=== PATIENT | male | born 1985 | race Caucasian/White ===

== ENCOUNTER 2017-12-30 15:00 | Emergency (ER) | payer OTHER ==
[2017-12-30] MEDS: Sodium Chloride 0.9% 1,000 ML IV ONE (17:20)
--- NOTE | 2017-12-30 17:20 | EDM.PDOC ---
ED HPI GENERAL MEDICAL PROBLEM - General Chief Complaint: Gastrointestinal Problem Stated Complaint: INHALED OLD COLD MED SPRAY/VOMITING Time Seen by Provider: 12/30/17 16:40 Source of Information: Reports: Patient - History of Present Illness INITIAL COMMENTS - FREE TEXT/NARRATIVE: Patient is here today for evaluation of sore throat, nausea and vomiting that started this morning. Patient states that he awoke with sore throat, he did use Chloraseptic [place] but feels that this needed monitor. Patient has been nauseated all day, has had approximately 20 episodes of vomiting. He states he has tried to drink fluids but has not kept any of this down. Patient has no history of GI illness. He has no known ill contacts. No different food or travel. Patient states that he does have some mild abdominal pain, he states that he feels this is more muscular from the force of vomiting. No other pain. Denies fever or chills. Middle Abdomen Pain Score (Numeric/FACES): 6 - Related Data Allergies Allergy/AdvReac Type Severity Reaction Status Date / Time No Known Allergies Allergy Verified 10/19/17 20:29 Home Meds: Home Meds Lisinopril 20 mg PO BEDTIME 12/30/17 [History] Ondansetron HCl [Zofran] 4 mg PO Q8HR PRN #10 tablet 12/30/17 [Rx] Past Medical History Cardiovascular History: Reports: High Cholesterol, Hypertension Psychiatric History: Reports: Anxiety Social & Family History - Tobacco Use Smoking Status *Q: Current Every Day Smoker Years of Tobacco use: 10 Packs/Tins Daily: 0.7 - Caffeine Use Caffeine Use: Reports: Tea ED ROS GENERAL - Review of Systems Review Of Systems: See Below Constitutional: Reports: Decreased Appetite. Denies: Fever, Chills, Malaise, Weakness, Fatigue HEENT: Reports: Throat Pain. Denies: Rhinitis, Sinus Problem, Throat Swelling Respiratory: Reports: No Symptoms Cardiovascular: Reports: No Symptoms GI/Abdominal: Reports: Abdominal Pain (mild, diffuse. Patient states muscle pain secondary to vomiting. ), Decreased Appetite, Nausea, Vomiting. Denies: Constipation, Diarrhea : Reports: No Symptoms Musculoskeletal: Reports: No Symptoms Skin: Reports: No Symptoms Neurological: Reports: No Symptoms Psychiatric: Reports: No Symptoms ED EXAM, GI/ABD - Physical Exam Exam: See Below Exam Limited By: No Limitations General Appearance: Alert, WD/WN, No Apparent Distress Ears: Normal External Exam, Normal Canal Nose: Normal Inspection, Normal Mucosa. No: Nasal Drainage Throat/Mouth: Normal Inspection, Normal Lips, Normal Oropharynx Head: Atraumatic, Normocephalic Neck: Normal Inspection, Supple, Non-Tender Respiratory/Chest: No Respiratory Distress, Lungs Clear, Normal Breath Sounds Cardiovascular: Normal Peripheral Pulses, Regular Rate, Rhythm, No Murmur GI/Abdominal Exam: Normal Bowel Sounds, Soft, Tender (mild mid-abdominal tenderness). No: Guarding, Rigid Extremities: Normal Inspection, Normal Range of Motion Neurological: Alert, Oriented Psychiatric: Normal Affect, Normal Mood Skin Exam: Warm, Dry, Intact Course - Vital Signs Last Recorded V/S: Last Vital Signs Temp 96.8 F 12/30/17 15:26 Pulse 103 H 12/30/17 18:50 Resp 18 12/30/17 18:50 BP 151/94 H 12/30/17 18:50 Pulse Ox 94 L 12/30/17 15:26 - Orders/Labs/Meds Orders: Active Orders 24 hr Category Date Time Status EKG 12 Lead [EKG Documentation Completion] [RC] STAT Care 12/30/17 16:52 Active CULTURE STREP A CONFIRMATION [RM] Stat Lab 12/30/17 17:10 Results Rapid Strep w/culture conf [STREP SCRN A RAPID W CULT Lab 12/30/17 17:10 Results CONF] [] Stat Labs: Laboratory Tests 12/30/17 12/30/17 12/30/17 Range/Units 15:29 15:29 15:29 WBC 9.63 H (4.23-9.07) K/mm3 RBC 4.61 L (4.63-6.08) M/mm3 Hgb 16.4 (13.7-17.5) gm/L Hct 46.4 (40.1-51.0) % MCV 100.7 H (79.0-92.2) fl MCH 35.6 H (25.7-32.2) pg MCHC 35.3 (32.2-35.5) g/dl RDW Std Deviation 47.7 H (35.1-43.9) fL Plt Count 266 (163-337) K/mm3 MPV 8.6 L (9.4-12.3) fl Neut % (Auto) 70.5 H (34.0-67.9) % Lymph % (Auto) 17.3 L (21.8-53.1) % [place] % (Auto) 10.4 (5.3-12.2) % Eos % (Auto) 1.1 (0.8-7.0) Baso % (Auto) 0.5 (0.1-1.2) % Neut # (Auto) 6.78 H (1.78-5.38) K/mm3 Lymph # (Auto) 1.67 (1.32-3.57) K/mm3 [place] # (Auto) 1.00 H (0.30-0.82) K/mm3 Eos # (Auto) 0.11 (0.04-0.54) K/mm3 Baso # (Auto) 0.05 (0.01-0.08) K/mm3 Sodium 136 (136-145) mEq/L Potassium 3.7 (3.5-5.1) mEq/L Chloride 100 (98-107) mEq/L Carbon Dioxide 25 (21-32) mEq/L Anion Gap 14.7 (5-15) BUN 4 L (7-18) mg/dL Creatinine 0.9 (0.7-1.3) mg/dL Est Cr Clr Drug Dosing 112.94 mL/min Estimated GFR (MDRD) > 60 (>60) mL/min BUN/Creatinine Ratio 4.4 L (14-18) Glucose 136 H (74-106) mg/dL Calcium 9.2 (8.5-10.1) mg/dL Magnesium 1.0 L (1.8-2.4) mg/dl Total Bilirubin 1.1 H (0.2-1.0) mg/dL AST 69 H (15-37) U/L ALT 58 (16-63) U/L Alkaline Phosphatase 88 (46-116) U/L C-Reactive Protein < 0.2 (<1.0) mg/dL Total Protein 8.1 (6.4-8.2) g/dl Albumin 3.9 (3.4-5.0) g/dl Globulin 4.2 gm/dL Albumin/Globulin Ratio 0.9 L (1-2) TSH 3rd Generation 1.770 (0.358-3.74) uIU/mL Urine Color (Yellow) Urine Appearance (Clear) Urine pH (5.0-8.0) Ur Specific [place] (1.005-1.030) Urine Protein (Negative) Urine Glucose (UA) (Negative) Urine Ketones (Negative) Urine Occult Blood (Negative) Urine Nitrite (Negative) Urine Bilirubin (Negative) Urine Urobilinogen (0.2-1.0) Ur Leukocyte Esterase (Negative) Urine RBC (0-5) /hpf Urine WBC (0-5) /hpf Ur Epithelial Cells (0-5) /hpf Urine Bacteria (FEW) /hpf Urine Mucus (FEW) /hpf Urine Opiates Screen (NEGATIVE) Ur Buprenorphine Scrn (NEGATIVE) Ur Oxycodone Screen (NEGATIVE) Urine Methadone Screen (NEGATIVE) Ur Propoxyphene Screen (NEGATIVE) Ur Barbiturates Screen (NEGATIVE) Ur Tricyclics Screen (NEGATIVE) Ur Phencyclidine Scrn (NEGATIVE) Ur Amphetamine Screen (NEGATIVE) U Methamphetamines Scrn (NEGATIVE) U Benzodiazepines Scrn (NEGATIVE) U Cocaine Metab Screen (NEGATIVE) U Marijuana (THC) Screen (NEGATIVE) Ethyl Alcohol 0.00 (0.00) gm% 12/30/17 12/30/17 Range/Units 17:00 17:00 WBC (4.23-9.07) K/mm3 RBC (4.63-6.08) M/mm3 Hgb (13.7-17.5) gm/L Hct (40.1-51.0) % MCV (79.0-92.2) fl MCH (25.7-32.2) pg MCHC (32.2-35.5) g/dl RDW Std Deviation (35.1-43.9) fL Plt Count (163-337) K/mm3 MPV (9.4-12.3) fl Neut % (Auto) (34.0-67.9) % Lymph % (Auto) (21.8-53.1) % [place] % (Auto) (5.3-12.2) % Eos % (Auto) (0.8-7.0) Baso % (Auto) (0.1-1.2) % Neut # (Auto) (1.78-5.38) K/mm3 Lymph # (Auto) (1.32-3.57) K/mm3 [place] # (Auto) (0.30-0.82) K/mm3 Eos # (Auto) (0.04-0.54) K/mm3 Baso # (Auto) (0.01-0.08) K/mm3 Sodium (136-145) mEq/L Potassium (3.5-5.1) mEq/L Chloride (98-107) mEq/L Carbon Dioxide (21-32) mEq/L Anion Gap (5-15) BUN (7-18) mg/dL Creatinine (0.7-1.3) mg/dL Est Cr Clr Drug Dosing mL/min Estimated GFR (MDRD) (>60) mL/min BUN/Creatinine Ratio (14-18) Glucose (74-106) mg/dL Calcium (8.5-10.1) mg/dL Magnesium (1.8-2.4) mg/dl Total Bilirubin (0.2-1.0) mg/dL AST (15-37) U/L ALT (16-63) U/L Alkaline Phosphatase (46-116) U/L C-Reactive Protein (<1.0) mg/dL Total Protein (6.4-8.2) g/dl Albumin (3.4-5.0) g/dl Globulin gm/dL Albumin/Globulin Ratio (1-2) TSH 3rd Generation (0.358-3.74) uIU/mL Urine Color Yellow (Yellow) Urine Appearance Clear (Clear) Urine pH 8.5 H (5.0-8.0) Ur Specific [place] 1.015 (1.005-1.030) Urine Protein 2+ H (Negative) Urine Glucose (UA) Negative (Negative) Urine Ketones Negative (Negative) Urine Occult Blood Negative (Negative) Urine Nitrite Negative (Negative) Urine Bilirubin Negative (Negative) Urine Urobilinogen 0.2 (0.2-1.0) Ur Leukocyte Esterase Negative (Negative) Urine RBC Not seen (0-5) /hpf Urine WBC 0-5 (0-5) /hpf Ur Epithelial Cells Not seen (0-5) /hpf Urine Bacteria Few (FEW) /hpf Urine Mucus Many H (FEW) /hpf Urine Opiates Screen Negative (NEGATIVE) Ur Buprenorphine Scrn Negative (NEGATIVE) Ur Oxycodone Screen Negative (NEGATIVE) Urine Methadone Screen Negative (NEGATIVE) Ur Propoxyphene Screen Negative (NEGATIVE) Ur Barbiturates Screen Negative (NEGATIVE) Ur Tricyclics Screen Negative (NEGATIVE) Ur Phencyclidine Scrn Negative (NEGATIVE) Ur Amphetamine Screen Negative (NEGATIVE) U Methamphetamines Scrn Negative (NEGATIVE) U Benzodiazepines Scrn Negative (NEGATIVE) U Cocaine Metab Screen Negative (NEGATIVE) U Marijuana (THC) Screen Negative (NEGATIVE) Ethyl Alcohol (0.00) gm% Meds: Medications Discontinued Medications Generic Name Dose Route Start Last Admin Trade Name Freq PRN Reason Stop Dose Admin Sodium Chloride 1,000 mls @ 999 mls/hr 12/30/17 17:10 12/30/17 17:20 Normal Saline IV 12/30/17 18:10 999 mls/hr ONETIME ONE Administration Ondansetron HCl 4 mg 12/30/17 18:07 12/30/17 18:08 Zofran IVPUSH 12/30/17 18:08 4 mg ONETIME ONE Administration Ondansetron HCl Confirm 12/30/17 18:13 12/30/17 18:11 Zofran Administered 12/30/17 18:14 Not Given Dose 4 mg .ROUTE .STK-MED ONE - Re-Assessments/Exams Free Text/Narrative Re-Assessment/Exam: Patient with significant improvement with fluids and Zofran. He denies any pain whatsoever. He is not really nauseated and is drinking water fine. He states he is starting to feel hungry. WBC 9,630 CRP <0.2. Mild elevation of liver enzymes this will need to be checked on it again an outpatient basis. Will discharge home, Zofran as needed. Recommend that he push oral fluids. [place] diet. He is follow-up to follow-up with PCP next week or certainly return to the emergency room if needed. 12/30/17 18:36 12/30/17 21:14 Departure - Departure Time of Disposition: 18:37 Disposition: Home, Self-Care 01 Condition: Good Clinical Impression: Nausea & vomiting, Sore throat (viral) - Discharge Information Prescriptions: Ondansetron HCl [Zofran] 4 mg PO Q8HR PRN #10 tablet PRN Reason: Nausea Instructions: Nausea and Vomiting, Adult, [id number], Sore Throat, Easy-to- Read Referrals: Marcelle Barbosa PA-C [Primary Care Provider] - Forms: ED Department Discharge Additional Instructions: Rest, push fluids as much as possible. As symptoms improved you can start to eat. I recommend a very bland/boring diet. No sugar/spicy/dairy foods. Follow-up with primary provider next week if you're not improving significantly or certainly return to the emergency room if needed. - My Orders Last 24 Hours: My Active Orders 12/30/17 17:10 CULTURE STREP A CONFIRMATION [RM] Stat Rapid Strep w/culture conf [STREP SCRN A RAPID W CULT CONF] [RM] Stat - Assessment/Plan Last 24 Hours: My Active Orders 12/30/17 17:10 CULTURE STREP A CONFIRMATION [RM] Stat Rapid Strep w/culture conf [STREP SCRN A RAPID W CULT CONF] [RM] Stat
[2017-12-30] MEDS: Ondansetron 4 MG/2 ML SDV IVPUSH ONE (18:08)
[2017-12-30] MEDS: Ondansetron 4 MG/2 ML SDV ONE (18:11)
== END 2017-12-30 18:50 | disposition home or self-care (01) ==
LOC: JD.ED 15:00
DX: J02.8 Acute pharyngitis due to other specified organisms (principal); B97.89 Other viral agents as the cause of diseases classified elsewhere; F17.210 Nicotine dependence, cigarettes, uncomplicated; E78.00 Pure hypercholesterolemia, unspecified; I10 Essential (primary) hypertension
CPT/HCPCS: 36415; 80053; 80306; 81001; 83735; 84443; 85025; 86140; 87081; 87430; 93005; 96361; 96374; 99284; G0480; J2405; J7040

== ENCOUNTER 2018-04-29 07:37 | Emergency (ER) | payer OTHER ==
--- NOTE | 2018-04-29 07:39 | EDM.PDOC ---
ED HPI GENERAL MEDICAL PROBLEM - General Chief Complaint: Respiratory Problem Stated Complaint: TROUBLE BREATHING Time Seen by Provider: 04/29/18 07:39 Source of Information: Reports: Patient History Limitations: Reports: No Limitations - History of Present Illness INITIAL COMMENTS - FREE TEXT/NARRATIVE: Patient had discharged himself AGAINST MEDICAL ADVICE in the last 10-15 minutes prior to my arrival at change of shift. Dr. Herrera is in the process of working him up with the patient decided to leave. Patient came in with dyspnea respiratory problems. His lab work is showing that he is hyponatremic with a sodium of 122. Potassium 5.7. Chloride 87 bicarbonate 17. And a gap is 23.7 which is felt to be due to alcohol-induced ketosis. BUN was 36 with a creatinine of 1.6. GFR is 50. Glucose was 118 calcium was 7.7 slightly low from not eating. Bilirubin was elevated at 2.1 with an AST of 313 and ALT of 106. Prostatism 100. Troponin was less than 0.020. Total protein is low at 5.3. Blood alcohol was 0.34. Total white count was 8.49. Differential was done by operative and revealed 68% neutrophils. Hemoglobin was low at 10.1 with hematocrit of 29.9. Platelet count is normal 178,000. His ABGs revealed a pH of 7.35 with a PCO2 of 29.6. PO2 was 78.0 bicarbonate was 16.1. O2 sats are 92.7% on 3 L. he appears to be in extremis. He had 2 IVs in before he left the ED. His initial blood pressure was in the 70s as well. Is suspect that he may well of had a massive pulmonary embolism. His both legs are grossly edematous. Swollen up to the knee. Lung sounds are equal bilaterally. Chest x-ray done prior reviewed. It reveals moderate cardiomegaly with diffuse vascular congestion. Bili and inability to keep the patient on the bed due to his anxiety and extremis decision made to go ahead with intubation. He is 275 pounds or about 125 kg. Onset: Unknown/Unsure (His friend who is here indicates that he's been in poor health for the last 10-12 days.) Duration: Day(s): Location: Reports: Other (Trouble breathing trouble eating trouble with mobility.) Severity: Severe Improves with: Reports: None Worsens with: Reports: None Context: Reports: Other (Chronic alcoholism.). Denies: Activity, Exercise, Lifting, Sick Contact, Trauma Associated Symptoms: Reports: Confusion, Cough, Malaise, Shortness of Breath, Weakness. 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) Back Pain Score (Numeric/FACES): 8 - Related Data Allergies Allergy/AdvReac Type Severity Reaction Status Date / Time No Known Allergies Allergy Verified 04/29/18 08:55 Home Meds: Home Meds Azelastine/Fluticasone [Dymista Nasal Rhame] 1 spray NS BID 04/29/18 [History] Cyclobenzaprine [Flexeril] 10 mg PO BEDTIME PRN 04/29/18 [History] Fenofibrate Nanocrystallized [Tricor] 145 mg PO DAILY 04/29/18 [History] Lisinopril 20 mg PO DAILY 04/29/18 [History] Montelukast [Singulair] 10 mg PO BEDTIME 04/29/18 [History] Past Medical History Cardiovascular History: Reports: High Cholesterol, Hypertension Psychiatric History: Reports: Anxiety Social & Family History - Caffeine Use Caffeine Use: Reports: Tea - Living Situation & Occupation Living situation: Reports: Single Occupation: Employed ED ROS GENERAL - Review of Systems Review Of Systems: See Below Constitutional: Reports: Malaise, Weakness, Fatigue, Decreased Appetite. Denies : Fever, Chills HEENT: Reports: No Symptoms Respiratory: Reports: Shortness of Breath, Cough. Denies: Wheezing, Pleuritic Chest Pain Cardiovascular: Reports: Dyspnea on Exertion, Edema (Both legs are grossly edematous past the knees.), Orthopnea (Can't lay down.). Denies: Chest Pain, Claudication Endocrine: Reports: Fatigue GI/Abdominal: Reports: Abdominal Pain, Nausea : Reports: No Symptoms Musculoskeletal: Reports: Other Skin: Reports: Bruising (Diffuse muscular skeletal pain due to cramping in his muscles particularly in his lower extremities. Bruises for which she can't account for. Particular across his left upper back across his abdominal wall. He states it might be related to work.) Neurological: Reports: Confusion Psychiatric: Reports: Anxiety, Confusion Hematologic/Lymphatic: Reports: Anemia, Easy Bruising Immunologic: Reports: No Symptoms ED EXAM, GENERAL - Physical Exam Exam: See Below Exam Limited By: Altered Mental Status (Confused although is able to answer most questions appropriately) General Appearance: Anxious, Severe Distress (Extremely anxious and agitated.), Other (Hypotensive) Eye Exam: Bilateral Eye: Normal Inspection (No jaundice) Throat/Mouth: Normal Inspection, Normal Lips, Normal Oropharynx, Other Head: Atraumatic, Normocephalic Neck: Normal Inspection, Supple, Non-Tender, Full Range of Motion. No: Lymphadenopathy (L), Lymphadenopathy (R) Respiratory/Chest: Lungs Clear, Normal Breath Sounds, Chest Non-Tender ( Tachypnea At rest.), Respiratory Distress Cardiovascular: Regular Rate, Rhythm, No Murmur, No Rub, Tachycardia ( Tachycardic at rest 114-1 20/m). No: No Edema, No Gallop Peripheral Pulses: 0: Posterior Tibial (L) (Unable to palpate any pulses in his lower extremities due to gross edema.), Posterior Tibial (R), Dorsalis Pedis (L) , Dorsalis Pedis (R) GI/Abdominal: Distended (He is diffusely distended and tender to percussion upper abdomen compatible with aerophagia.), Other (Marked obesity. This limits ability to palpate solid organs.) Extremities: Pedal Edema (He has dependent edema past his knees bilaterally.) Neurological: Alert, Oriented, CN II-XII Intact, Normal Cognition, Normal Gait Skin Exam: Warm, Dry, Ecchymosis (Multiple ecchymoses. There is a linear ecchymoses left upper mid back over his scapula which can account for. There is an contusion across his lower abdominal wall with bruises again with her which she can't account for.) EKG INTERPRETATION EKG Date: 04/29/18 Time: 06:25 Rhythm: Other (Sinus tachycardia) Rate (Beats/Min): 109 [place]: Normal P-Wave: Present QRS: Other (Decreased voltage precordial leads due to thick chest.) ST-T: Other (T-wave flattening in aVF.) QT: Normal EKG Interpretation Comments: Borderline ECG. Course - Vital Signs Last Recorded V/S: Last Vital Signs Temp 36.2 C 04/29/18 07:50 Pulse 115 H 04/29/18 07:50 Resp 26 H 04/29/18 07:50 BP 68/46 L 04/29/18 07:50 Pulse Ox 93 L 04/29/18 07:50 - Orders/Labs/Meds Orders: Active Orders 24 hr Category Date Time Status Insert Velazquez Catheter [Insert Urinary Catheter] [OM.PC] Care 04/29/18 08:45 Ordered Q24H Nasogastric Tube Management [Gastrointestinal Tube Mgmt Care 04/29/18 08:18 Active ] [RC] ASDIRECTED Oxygen Therapy [RC] ASDIRECTED Care 04/29/18 07:44 Active Urinary Catheter Assessment [RC] ASDIRECTED Care 04/29/18 08:43 Active Ventilator Assessment [RT Ventilator, Adult] [RC] Care 04/29/18 09:25 Active ASDIRECTED CULTURE BLOOD [BC] Stat Lab 04/29/18 09:31 Received CULTURE BLOOD [BC] Stat Lab 04/29/18 09:38 Received LACTIC ACID [CHEM] Stat Lab 04/29/18 09:31 Received PATIENT RETYPE [BBK] Stat Lab 04/29/18 08:10 Results TYPE AND SCREEN [BBK] Stat Lab 04/29/18 08:10 Results Levofloxacin/Dextrose 5%-Water [Levaquin in D5W 750 MG/ Med 04/29/18 09:54 Ordered 150 ML] 750 mg Premix Bag 1 bag IV ONETIME Magnesium Sulfate/Water [Magnesium Sulfate 2 GM in Med 04/29/18 09:13 Active Water 50 ML] 2 gm Premix Bag 1 bag IV ONETIME Magnesium Sulfate/Water [Magnesium Sulfate 2 GM in Med 04/29/18 09:16 Active Water 50 ML] 2 gm Premix Bag 1 bag IV ONETIME Norepinephrine [Levophed] 4 mg Med 04/29/18 08:30 Active Dextrose 5% in Water 246 ml IV ASDIRECTED Propofol [Diprivan 100 ML] 100 ml Med 04/29/18 08:45 Active IV TITRATE Sodium Chloride 0.9% [Normal Saline] 1,000 ml Med 04/29/18 07:45 Active IV ASDIRECTED Sodium Chloride 0.9% [Normal Saline] 100 ml Med 04/29/18 09:00 Active IV ASDIRECTED cefTRIAXone [Rocephin] 2 gm Med 04/29/18 09:10 Active Sodium Chloride 0.9% [Normal Saline] 100 ml IV ONETIME fentaNYL [Sublimaze] 2,500 mcg Med 04/29/18 10:00 Ordered Sodium Chloride 0.9% [Normal Saline] 200 ml IV ASDIRECTED Blood Culture x2 Reflex Set [OM.PC] Stat Ot 04/29/18 09:10 Ordered Desired Level of Sedation (RASS) [AST] Click To Edit Ot 04/29/18 08:41 Ordered Nasogastric Orogastric Tube Insertion [OM.PC] Routine Ot 04/29/18 08:18 Ordered Medication Orders Sodium Chloride (Normal Saline) 1,000 mls @ 500 mls/hr IV ASDIRECTED SUBHA Last Admin: 04/29/18 08:00 Dose: 500 mls/hr Norepinephrine Bitartrate 4 mg (/ Dextrose/Water) 250 mls @ 15 mls/hr IV ASDIRECTED SUBHA Last Admin: 04/29/18 09:06 Dose: 4 mcg/min, 15 mls/hr Propofol (Diprivan 100 Ml) 100 mls @ 3.66 mls/hr IV TITRATE SUBHA; Protocol Last Admin: 04/29/18 08:45 Dose: 5 mcg/kg/min, 3.66 mls/hr Sodium Chloride (Normal Saline) 100 mls @ 60 mls/hr IV ASDIRECTED SUBHA Last Admin: 04/29/18 08:55 Dose: 60 mls/hr Magnesium Sulfate 2 gm/ Premix 50 mls @ 25 mls/hr IV ONETIME ONE Stop: 04/29/18 11:12 Last Admin: 04/29/18 09:18 Dose: 25 mls/hr Magnesium Sulfate 2 gm/ Premix 50 mls @ 25 mls/hr IV ONETIME ONE Stop: 04/29/18 11:15 Ceftriaxone Sodium 2 gm/ (Sodium Chloride) 100 mls @ 100 mls/hr IV ONETIME ONE Stop: 04/29/18 10:09 Last Admin: 04/29/18 09:47 Dose: 100 mls/hr Fentanyl 2,500 mcg/ Sodium (Chloride) 250 mls @ 39.04 mls/hr IV ASDIRECTED SUBHA Levofloxacin/Dextrose 750 mg/ (Premix) 150 mls @ 100 mls/hr IV ONETIME ONE Stop: 04/29/18 11:23 Labs: Laboratory Tests 04/29/18 04/29/18 04/29/18 Range/Units 06:24 06:24 06:24 PT 16.1 H (9.5-12.1) SECONDS INR 1.49 APTT 31 (24-31) SECONDS D-Dimer, Quantitative 0.96 H (0.19-0.50) mg/L Puncture Site ABG pH (7.35-7.45) ABG pCO2 (35.0-45.0) mmHg ABG pO2 (80.0-100.0) mmHg ABG HCO3 (22.0-26.0) meq/L ABG O2 Saturation (96.0-97.0) % ABG Base Excess (-2-2.0) A-a Gradient mmHg O2 Delivery Device FiO2 (21.00-100.00) % Tidal Volume cc PEEP cmH20 Magnesium 0.9 L (1.8-2.4) mg/dl NT-Pro-B Natriuret Pep (0-125) pg/mL Urine Opiates Screen (NEGATIVE) Ur Buprenorphine Scrn (NEGATIVE) Ur Oxycodone Screen (NEGATIVE) Urine Methadone Screen (NEGATIVE) Ur Propoxyphene Screen (NEGATIVE) Ur Barbiturates Screen (NEGATIVE) Ur Tricyclics Screen (NEGATIVE) Ur Phencyclidine Scrn (NEGATIVE) Ur Amphetamine Screen (NEGATIVE) U Methamphetamines Scrn (NEGATIVE) U Benzodiazepines Scrn (NEGATIVE) U Cocaine Metab Screen (NEGATIVE) U Marijuana (THC) Screen (NEGATIVE) Ketones 0.5 (0.0-0.3) mM Blood Type Gel Antibody Screen 04/29/18 04/29/18 04/29/18 Range/Units 08:10 08:10 08:20 PT (9.5-12.1) SECONDS INR APTT (24-31) SECONDS D-Dimer, Quantitative (0.19-0.50) mg/L Puncture Site ABG pH (7.35-7.45) ABG pCO2 (35.0-45.0) mmHg ABG pO2 (80.0-100.0) mmHg ABG HCO3 (22.0-26.0) meq/L ABG O2 Saturation (96.0-97.0) % ABG Base Excess (-2-2.0) A-a Gradient mmHg O2 Delivery Device FiO2 (21.00-100.00) % Tidal Volume cc PEEP cmH20 Magnesium (1.8-2.4) mg/dl NT-Pro-B Natriuret Pep 15 (0-125) pg/mL Urine Opiates Screen Negative (NEGATIVE) Ur Buprenorphine Scrn Negative (NEGATIVE) Ur Oxycodone Screen Negative (NEGATIVE) Urine Methadone Screen Negative (NEGATIVE) Ur Propoxyphene Screen Negative (NEGATIVE) Ur Barbiturates Screen Negative (NEGATIVE) Ur Tricyclics Screen Presumptive positive H (NEGATIVE) Ur Phencyclidine Scrn Negative (NEGATIVE) Ur Amphetamine Screen Negative (NEGATIVE) U Methamphetamines Scrn Negative (NEGATIVE) U Benzodiazepines Scrn Negative (NEGATIVE) U Cocaine Metab Screen Negative (NEGATIVE) U Marijuana (THC) Screen Negative (NEGATIVE) Ketones (0.0-0.3) mM Blood Type A POSITIVE Gel Antibody Screen Negative 04/29/18 Range/Units 09:15 PT (9.5-12.1) SECONDS INR APTT (24-31) SECONDS D-Dimer, Quantitative (0.19-0.50) mg/L Puncture Site Rt radial ABG pH 7.22 L (7.35-7.45) ABG pCO2 42.7 (35.0-45.0) mmHg ABG pO2 91.0 (80.0-100.0) mmHg ABG HCO3 17.0 L (22.0-26.0) meq/L ABG O2 Saturation 92.6 L (96.0-97.0) % ABG Base Excess -9.7 L (-2-2.0) A-a Gradient 431 mmHg O2 Delivery Device Ventilator FiO2 90.00 (21.00-100.00) % Tidal Volume 650.0 cc PEEP 5.0 cmH20 Magnesium (1.8-2.4) mg/dl NT-Pro-B Natriuret Pep (0-125) pg/mL Urine Opiates Screen (NEGATIVE) Ur Buprenorphine Scrn (NEGATIVE) Ur Oxycodone Screen (NEGATIVE) Urine Methadone Screen (NEGATIVE) Ur Propoxyphene Screen (NEGATIVE) Ur Barbiturates Screen (NEGATIVE) Ur Tricyclics Screen (NEGATIVE) Ur Phencyclidine Scrn (NEGATIVE) Ur Amphetamine Screen (NEGATIVE) U Methamphetamines Scrn (NEGATIVE) U Benzodiazepines Scrn (NEGATIVE) U Cocaine Metab Screen (NEGATIVE) U Marijuana (THC) Screen (NEGATIVE) Ketones (0.0-0.3) mM Blood Type Gel Antibody Screen Meds: Medications Generic Name Dose Route Start Last Admin Trade Name Freq PRN Reason Stop Dose Admin Sodium Chloride 1,000 mls @ 500 mls/hr 04/29/18 07:45 04/29/18 08:00 Normal Saline IV 500 mls/hr ASDIRECTED SUBHA Administration Norepinephrine Bitartrate 4 mg 250 mls @ 15 mls/hr 04/29/18 08:30 04/29/18 09 :06 / Dextrose/Water IV 4 mcg/min ASDIRECTED SUBHA 15 mls/hr Administration 4 MCG/MIN Propofol 100 mls @ 3.66 mls/hr 04/29/18 08:45 04/29/18 08:45 Diprivan 100 Ml IV 5 mcg/kg/min TITRATE SUBHA 3.66 mls/hr Administration Protocol 5 MCG/KG/MIN Sodium Chloride 100 mls @ 60 mls/hr 04/29/18 09:00 04/29/18 08:55 Normal Saline IV 60 mls/hr ASDIRECTED SUBHA Administration Magnesium Sulfate 2 gm/ Premix 50 mls @ 25 mls/hr 04/29/18 09:13 04/29/18 09: 18 IV 04/29/18 11:12 25 mls/hr ONETIME ONE Administration Magnesium Sulfate 2 gm/ Premix 50 mls @ 25 mls/hr 04/29/18 09:16 IV 04/29/18 11:15 ONETIME ONE Ceftriaxone Sodium 2 gm/ 100 mls @ 100 mls/hr 04/29/18 09:10 04/29/18 09:47 Sodium Chloride IV 04/29/18 10:09 100 mls/hr ONETIME ONE Administration Fentanyl 2,500 mcg/ Sodium 250 mls @ 39.04 mls/hr 04/29/18 10:00 Chloride IV ASDIRECTED SUBHA 3.2 MCG/KG/HR Levofloxacin/Dextrose 750 mg/ 150 mls @ 100 mls/hr 04/29/18 09:54 Premix IV 04/29/18 11:23 ONETIME ONE Discontinued Medications Generic Name Dose Route Start Last Admin Trade Name Lisa VILLALPANDON Reason Stop Dose Admin Etomidate 38 mg 04/29/18 09:19 04/29/18 08:05 Amidate IVPUSH 04/29/18 09:20 38 mg ONETIME ONE Administration Hydromorphone HCl 0.5 mg 04/29/18 07:43 04/29/18 08:00 Dilaudid IVPUSH 04/29/18 07:44 0.5 mg ONETIME ONE Administration Propofol Confirm 04/29/18 08:42 04/29/18 09:07 Diprivan 100 Ml Administered 04/29/18 08:43 Not Given Dose 100 mls @ as directed .ROUTE .STK-MED ONE Magnesium Sulfate 4 gm/ Premix 100 mls @ 300 mls/hr 04/29/18 08:52 04/29/18 09:17 IV 04/29/18 08:53 Not Given ONETIME ONE Magnesium Sulfate Confirm 04/29/18 09:07 04/29/18 09:17 Magnesium Sulfate 2 Gm In Water 50 Ml Administered 04/29/18 09:08 Not Given Dose 50 mls @ as directed .ROUTE .STK-MED ONE Fentanyl 2,500 mcg/ Sodium 250 mls @ 36.6 mls/hr 04/29/18 10:00 Chloride IV TITRATE SUBHA Protocol 3 MCG/KG/HR Iopamidol 100 ml 04/29/18 08:50 04/29/18 08:55 Isovue-370 (76%) IVPUSH 04/29/18 08:51 100 ml ONETIME ONE Administration Iopamidol 50 ml 04/29/18 08:50 04/29/18 08:55 Isovue-370 (76%) IVPUSH 04/29/18 08:51 50 ml ONETIME ONE Administration Lidocaine HCl Confirm 04/29/18 08:00 04/29/18 09:31 Xylocaine 2% Administered 04/29/18 08:01 Not Given Dose 100 mg .ROUTE .STK-MED ONE Lidocaine HCl 150 ml 04/29/18 09:21 Xylocaine 2% .XX 04/29/18 09:22 ONETIME ONE Lorazepam 1 mg 04/29/18 07:42 04/29/18 09:07 Ativan IVPUSH 04/29/18 07:43 1 mg ONETIME ONE Administration Lorazepam Confirm 04/29/18 07:42 04/29/18 09:07 Ativan Administered 04/29/18 07:43 Not Given Dose 2 mg .ROUTE .STK-MED ONE Sodium Chloride 10 ml 04/29/18 08:50 04/29/18 08:56 Saline Flush FLUSH 04/29/18 08:51 10 ml ONETIME ONE Administration Succinylcholine Chloride 200 mg 04/29/18 08:00 04/29/18 08:05 Quelicin IV 04/29/18 08:01 200 mg ONETIME ONE Administration Vecuronium Lewis 12.5 mg 04/29/18 09:29 04/29/18 08:22 Vecuronium IVPUSH 04/29/18 09:30 12.5 mg ONETIME ONE Administration Vecuronium Lewis 12.5 mg 04/29/18 09:29 04/29/18 09:36 Vecuronium IVPUSH 04/29/18 09:30 12.5 mg ONETIME ONE Administration Vecuronium Lewis Confirm 04/29/18 09:29 Vecuronium Administered 04/29/18 09:30 Dose 10 mg .ROUTE .STK-MED ONE Vecuronium Lewis Confirm 04/29/18 09:29 Vecuronium Administered 04/29/18 09:30 Dose 10 mg .ROUTE .STK-MED ONE - Radiology Interpretation Free Text/Narrative:: 32-year-old male presents to the ED shortly after leaving the ED AGAINST MEDICAL ADVICE. Dr. Herrera--had been caring for this patient who had presented with dyspnea and bilateral lower extremity pain. I history he is been in poor health for the last several weeks but has been refusing to come to the hospital for medical care. By history he is a chronic alcoholic. He is morbidly obese. He presents with hypotension and had [address] before he elected to leave the ED. His workup was just being completed when he decided to leave the ED. He was in respiratory distress. 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 He has gross edema both lower extremities up past his knees. He cannot lie down. He is orthopneic and apprehensive and difficult to reason with. There is some degree of confusion. His blood gases did not confirm any significant hypercapnia. His PaO2 was maintained and I believe 70. This was on 3 L. Decision made to intubate the patient as we could not gain control of him. He was therefore intubated with lidocaine 150 mg IV, etomidate 38mg IV then succinylcholine 150mg IV. VISION REHABILITATION THERAPIST was present to facilitate intubation which is going to be difficult due to his large size. He did prove to be difficult but was able to achieve it on first attempt with the glide scope. #8 Wallisian tube placed 23 cm at his teeth. Good air entry bilaterally confirmation by capnometry. Plan will be to proceed to CT to rule out pulmonary angiogram although I believe his primary problem is likely congestive heart failure. His blood pressure remains low even at IVs running open. It last BP was 72 systolic. He will thus be started on levo fed drip starting at 4 mcg/kg/m. - Re-Assessments/Exams Free Text/Narrative Re-Assessment/Exam: 04/29/18 08:43 patient started to wake up in CT suite. He was therefore given vecuronium 12.5 mg IV push. Will also then be started on propofol drip at 5 mcg/ kg/m. Levophed drip is to be started but has not been yet. BP transiently went up to as high as 126 systolic. It is currently 106 systolic. 04/29/18 08:52 d-dimer came back at 0.96. BNP came back normal 15 indicating severely volume depleted. Serum magnesium level came back extremely low 0.9. He will receive 4 g of magnesium sulfate over the next 2 hours. Current blood pressure is 107/56. Propofol drip has been started. No norepinephrine drip has been withheld at this point time is he developed transient elevated blood pressure. Dentist later management initially was tidal volume of 650 with an FiO2 of 70 people 5 and rate of 14. At this level he could not maintain appropriate O2 sats. They remain in the upper 80s. Therefore his FiO2 was increased to 80%. Tidal volume remains at 650. Rate is increased to 16/m. Her gases will be ordered when he's been on the vent for about 20 minutes. 04/29/18 09:00 Part of his labs are back. His urinalysis or urine drug screen is presumptively positive for tricyclics. We will try and find out what his meds are. PT is 16.1 with an INR 1.49 i.e. auto anticoagulated. PTT is 31. D- dimer is 0.96. Patient's current med list obtained from his primary care provider Marcelle joe at [facility]. He is on lisinopril 20 mg daily. He is on Singulair daily and Flonase for allergic rhinitis. 04/29/18 09:25 ABGs reveal a pH of 7.22 with a PCO2 of 42.7 and PO2 of 91. Sats are 92.6%. Adjustments again to the vent. Increase rate to 18/m. Try and pull off more CO2 and improve his pH. Increase FiO2 to 90%. PEEP increased to 10. 04/29/18 09:45: Care has been accepted by chef de froid Dr Martins? Event Marketing Manager at [facility] in [place]. He will be sent by ground a months as he is too large to fit in the helicopter. Flight service would be another 2- 3 hours. Patient is currently on a fentanyl drip at 3.2 mcg/kg/m. He remains on propofol drip at 0.5 mcg/kg/h. Levaquin 750 mg IV was added to his treatment plan due to possibility of aspiration pneumonitis. Also the fact that he said alcoholic places him at risk of gram-negative organisms in his lungs to causes pneumonia. BP at time of discharge 119/47 on 4 mcg/kg of levo fed. Heart rate is 121 in sinus. Sats are 94% He will have to receive 1 dose of vecuronium 12.5 mg intravenously en route to [place] as he is likely to wake up in about 25 minutes. Departure - Departure Time of Disposition: 10:08 Disposition: DC/Tfer to Acute Hospital 02 Condition: Critical Clinical Impression: Hypoxia, Alcoholism Pneumonia Qualifiers: Laterality: bilateral Lung location: lower lobe of lung Hypotension Qualifiers: Hypotension type: other hypotension type Qualified Code(s): I95.89 - Other hypotension Sepsis Qualifiers: Sepsis type: sepsis due to unspecified organism Qualified Code(s): A41.9 - Sepsis, unspecified organism - Discharge Information Referrals: Marcelle Barbosa PA-C [Primary Care Provider] - Forms: ED Department Discharge - My Orders Last 24 Hours: My Active Orders 04/29/18 07:44 Oxygen Therapy [RC] ASDIRECTED 04/29/18 07:45 Sodium Chloride 0.9% [Normal Saline] 1,000 ml IV ASDIRECTED 04/29/18 08:10 PATIENT RETYPE [BBK] Stat TYPE AND SCREEN [BBK] Stat 04/29/18 08:18 Nasogastric Tube Management [Gastrointestinal Tube Mgmt] [RC] ASDIRECTED Nasogastric Orogastric Tube Insertion [OM.PC] Routine 04/29/18 08:30 Norepinephrine [Levophed] 4 mg Dextrose 5% in Water 246 ml IV ASDIRECTED 04/29/18 08:41 Desired Level of Sedation (RASS) [AST] Click To Edit 04/29/18 08:43 Urinary Catheter Assessment [RC] ASDIRECTED 04/29/18 08:45 Insert Velazquez Catheter [Insert Urinary Catheter] [OM.PC] Q24H Propofol [Diprivan 100 ML] 100 ml IV TITRATE 04/29/18 09:00 Sodium Chloride 0.9% [Normal Saline] 100 ml IV ASDIRECTED 04/29/18 09:10 cefTRIAXone [Rocephin] 2 gm Sodium Chloride 0.9% [Normal Saline] 100 ml IV ONETIME Blood Culture x2 Reflex Set [OM.PC] Stat 04/29/18 09:13 Magnesium Sulfate/Water [Magnesium Sulfate 2 GM in Water 50 ML] 2 gm Premix Bag 1 bag IV ONETIME 04/29/18 09:16 Magnesium Sulfate/Water [Magnesium Sulfate 2 GM in Water 50 ML] 2 gm Premix Bag 1 bag IV ONETIME 04/29/18 09:25 Ventilator Assessment [RT Ventilator, Adult] [RC] ASDIRECTED 04/29/18 09:31 CULTURE BLOOD [BC] Stat LACTIC ACID [CHEM] Stat 04/29/18 09:38 CULTURE BLOOD [BC] Stat 04/29/18 09:54 Levofloxacin/Dextrose 5%-Water [Levaquin in D5W 750 MG/150 ML] 750 mg Premix Bag 1 bag IV ONETIME 04/29/18 10:00 fentaNYL [Sublimaze] 2,500 mcg Sodium Chloride 0.9% [Normal Saline] 200 ml IV ASDIRECTED - Assessment/Plan Last 24 Hours: My Active Orders 04/29/18 07:44 Oxygen Therapy [RC] ASDIRECTED 04/29/18 07:45 Sodium Chloride 0.9% [Normal Saline] 1,000 ml IV ASDIRECTED 04/29/18 08:10 PATIENT RETYPE [BBK] Stat TYPE AND SCREEN [BBK] Stat 04/29/18 08:18 Nasogastric Tube Management [Gastrointestinal Tube Mgmt] [RC] ASDIRECTED Nasogastric Orogastric Tube Insertion [OM.PC] Routine 04/29/18 08:30 Norepinephrine [Levophed] 4 mg Dextrose 5% in Water 246 ml IV ASDIRECTED 04/29/18 08:41 Desired Level of Sedation (RASS) [AST] Click To Edit 04/29/18 08:43 Urinary Catheter Assessment [RC] ASDIRECTED 04/29/18 08:45 Insert Velazquez Catheter [Insert Urinary Catheter] [OM.PC] Q24H Propofol [Diprivan 100 ML] 100 ml IV TITRATE 04/29/18 09:00 Sodium Chloride 0.9% [Normal Saline] 100 ml IV ASDIRECTED 04/29/18 09:10 cefTRIAXone [Rocephin] 2 gm Sodium Chloride 0.9% [Normal Saline] 100 ml IV ONETIME Blood Culture x2 Reflex Set [OM.PC] Stat 04/29/18 09:13 Magnesium Sulfate/Water [Magnesium Sulfate 2 GM in Water 50 ML] 2 gm Premix Bag 1 bag IV ONETIME 04/29/18 09:16 Magnesium Sulfate/Water [Magnesium Sulfate 2 GM in Water 50 ML] 2 gm Premix Bag 1 bag IV ONETIME 04/29/18 09:25 Ventilator Assessment [RT Ventilator, Adult] [RC] ASDIRECTED 04/29/18 09:31 CULTURE BLOOD [BC] Stat LACTIC ACID [CHEM] Stat 04/29/18 09:38 CULTURE BLOOD [BC] Stat 04/29/18 09:54 Levofloxacin/Dextrose 5%-Water [Levaquin in D5W 750 MG/150 ML] 750 mg Premix Bag 1 bag IV ONETIME 04/29/18 10:00 fentaNYL [Sublimaze] 2,500 mcg Sodium Chloride 0.9% [Normal Saline] 200 ml IV ASDIRECTED
[2018-04-29] MEDS ORDERED: LORazepam 2 MG/ML SDV ONE (07:42)
[2018-04-29] MEDS ORDERED: LORazepam 2 MG/ML SDV IVPUSH ONE (07:42)
[2018-04-29] MEDS ORDERED: HYDROmorphone 0.5 MG/0.5 ML SYRINGE IVPUSH ONE (07:43)
[2018-04-29] MEDS ORDERED: Sodium Chloride 0.9% 1,000 ML IV SCH (07:45)
[2018-04-29] MEDS ORDERED: Succinylcholine 200 MG/10 ML MDV IV ONE (08:00)
[2018-04-29] MEDS: Lidocaine 2% 100 MG/5 ML Syringe ONE ×2 (08:04→09:31)
[2018-04-29] MEDS ORDERED: Norepinephrine 4 MG in Dextrose 5% in Water 246 ML IV SCH ×2 (08:30)
[2018-04-29] MEDS ORDERED: Iopamidol 755 MG/ML 50 ML Bottle IVPUSH ONE (08:50)
[2018-04-29] MEDS ORDERED: Sodium Chloride 0.9% 10 ML Syringe FLUSH ONE (08:50)
[2018-04-29] MEDS ORDERED: Iopamidol 755 Mg/ML 100 ML Bottle IVPUSH ONE (08:50)
[2018-04-29] MEDS ORDERED: Magnesium Sulfate/Water 4 GM in Premix Bag 1 BAG IV ONE (08:52)
[2018-04-29] MEDS ORDERED: Sodium Chloride 0.9% 100 ML IV SCH (09:00)
[2018-04-29] MEDS ORDERED: Magnesium Sulfate/Water 50 ML ONE (09:07)
[2018-04-29] MEDS ORDERED: cefTRIAXone 2 GM in Sodium Chloride 0.9% 100 ML IV ONE (09:10)
--- NOTE | 2018-04-29 09:11 | CT ---
CT chest Technique: Multiple axial sections through the chest were obtained. Intravenous contrast was utilized. Study performed as a pulmonary angiogram protocol. Findings: Pulmonary arteries are not optimally opacified. There is also artifact from patient body habitus diminishing details. No discrete filling defects within the main or segmental branches. Subsegmental pulmonary could easily be missed. Mediastinal and hilar regions appear within normal limits. No pericardial thickening is seen. Diffuse fatty infiltration is seen throughout the liver. Tip of nasogastric tube lies within the stomach and courses off the inferior edge of this exam. Endotracheal tube is seen. Tip of endotracheal tube lies approximately 3 cm above the jm in satisfactory position. Parenchymal densities with consolidation identified within both lung posterior bases. Lungs otherwise are clear. Impression: 1. Suboptimal study due to body habitus and poor contrast timing. No discrete pulmonary embolism within the main or segmental branches but smaller subsegmental pulmonary emboli could easily be missed. 2. Satisfactory position of endotracheal tube and nasogastric tube. 3. Consolidated densities posteriorly within both lung bases. Differential includes pneumonia as well as aspiration. Diagnostic code #3
[2018-04-29] MEDS ORDERED: Magnesium Sulfate/Water 2 GM in Premix Bag 1 BAG IV ONE ×2 (09:13→09:16)
[2018-04-29] MEDS ORDERED: Etomidate 2 MG/ML 20 ML SDV IVPUSH ONE (09:19)
[2018-04-29] MEDS ORDERED: Levofloxacin/Dextrose 5%-Water 750 MG in Premix Bag 1 BAG IV ONE (09:54)
[2018-04-29] MEDS ORDERED: fentaNYL 2,500 MCG in Sodium Chloride 0.9% 200 ML IV SCH ×4 (10:00)
== END 2018-04-29 10:40 ==
LOC: JD.ED 07:37
DX: A41.9 Sepsis, unspecified organism (principal); J18.9 Pneumonia, unspecified organism; I95.89 Other hypotension; F10.20 Alcohol dependence, uncomplicated; I10 Essential (primary) hypertension; E78.00 Pure hypercholesterolemia, unspecified; F41.9 Anxiety disorder, unspecified; Z79.899 Other long term (current) drug therapy; J96.01 Acute respiratory failure with hypoxia; F17.210 Nicotine dependence, cigarettes, uncomplicated
CPT/HCPCS: 31500; 36415; 36600; 51702; 71045; 71275; 80053; 80306; 82009; 82803; 83605; 83735; 83880; 84484; 85025; 85379; 85610; 85730; 86850; 86900; 86901; 87040; 93005; 94640; 96361; 96365; 96366; 96368; 96375; 96376; 99285; 99291; 99292; G0480; J0330; J0696; J1170; J1956; J2060; J3010; J7030; J7040; J7050; J7060; Q9967; 99284-25; J2001; J2704; J3475; J3490